=== PATIENT | male | born 1960 | race Caucasian/White ===

== ENCOUNTER 2017-07-08 16:59 | Emergency (ER) | payer BC ==
[2017-07-08 17:14] VITALS: BP 141/84
[2017-07-08] MEDS ORDERED: Fluorescein Sod TOPICAL 0.6* 0.6 MG TEST OPHTHALMIC ONE (17:21)
[2017-07-08] MEDS ORDERED: Tetracaine 0.5% OPTH.SOL 4 ML* 1 DROP BTL BOTH EYES ONE (17:21)
--- NOTE | 2017-07-08 17:23 | UC ---
Eye Complaint HPI - HPI Summary HPI Summary: Pt presents with injury to left eye. He tells me that he went out for a about 1 hour [employer] and was ducking under a tree branch. The branch came down and swiped him across the left eye. Had immediate pain and tearing. He went home and tried to let it rest for an hour or so - did improve some, but he has had an abrasion to this eye before and thinks he remembered having antibiotic coverage. His vision is decreased in this eye, but due to tearing. He does not wear contacts. - History of Current Complaint Chief Complaint: UCEye Stated Complaint: EYE INJURY Time Seen by Provider: 07/08/17 17:16 Hx Obtained From: Patient Onset/Duration: Sudden Onset Severity Initially: Moderate Severity Currently: Mild Pain Intensity: 3 Pain Scale Used: 0-10 Numeric Location of Injury: Sclera Character: Dull Aggravating Factor(s): Blinking Alleviating Factor(s): Darkness, Eye Drops - Allergies/Home Medications Allergies/Adverse Reactions: Allergies Allergy/AdvReac Type Severity Reaction Status Date / Time No Known Allergies Allergy Verified 07/08/17 17:14 PMH/Surg Hx/FS Hx/Imm Hx Previously Healthy: Yes - Surgical History Surgical History: None - Family History Known Family History: Positive: Cardiac Disease - Social History Occupation: Employed Full-time Lives: With Family Alcohol Use: Daily Alcohol Amount: 1 beer/day Substance Use Type: None Smoking Status (MU): Never Smoked Tobacco Review of Systems Constitutional: Negative Skin: Negative Eyes: Drainage - Left eye, Eye Redness - Left eye Respiratory: Negative Cardiovascular: Negative Gastrointestinal: Negative Neurovascular: Negative Neurological: Negative Psychological: Negative All Other Systems Reviewed And Are Negative: Yes Physical Exam Triage Information Reviewed: Yes Appearance: Well-Appearing, No Pain Distress, Well-Nourished Vital Signs: Initial Vital Signs Temp 98.4 F 07/08/17 17:09 Pulse 88 07/08/17 17:09 Resp 14 07/08/17 17:09 BP 141/84 07/08/17 17:09 Pulse Ox 98 07/08/17 17:09 Vital Signs Reviewed: Yes Eyes: Positive: Other: - Left eye with sclera injection and clear tearing. No FBs. EOMI. PERRLA. Dye exam: reveals 2mm abrasion just lateral to the pupil. No edgar sign. Vision OD 20/20, OS 20/40, OU 20/30. Neck: Positive: Supple, Nontender, No Lymphadenopathy Respiratory: Positive: Lungs clear, Normal breath sounds, No respiratory distress, No accessory muscle use Cardiovascular: Positive: RRR, No Murmur, Pulses Normal Neurological: Positive: Alert Psychological: Positive: Age Appropriate Behavior Skin: Negative: rashes, significant lesion(s) Eye Complaint Course/Dx - Course Course Of Treatment: Left eye corneal abrasion. Will cover with ofloxacin and have him f/u with his eye doctor within the week. - Differential Dx/Diagnosis Provider Diagnoses: Left eye abrasion Discharge - Sign-Out/Discharge Documenting (check all that apply): Discharge - Discharge Plan Condition: Stable Disposition: HOME Prescriptions: Ofloxacin 0.3%(Ophth)(Nf) [Ocuflox OPTH 0.3%(NF)] 1 drop LEFT EYE QID #1 btl Patient Education Materials: Corneal Abrasion (ED) Referrals: Jesus Springer MD [Primary Care Provider] - Additional Instructions: If you develop a fever, shortness of breath, chest pain, new or worsening symptoms - please call your PCP or go to the ED. Your blood pressure was high at todays visit. Please see your primary provider within 4 weeks for recheck and re-evaluation. 1) Please schedule a follow up appointment with your eye doctor within 1 week for recheck - Billing Disposition and Condition Condition: STABLE Disposition: HOME
== END 2017-07-08 17:55 | disposition home or self-care (01) ==
LOC: UCEAST 16:59
DX: S05.02XA Injury of conjunctiva and corneal abrasion without foreign body, left eye, initial encounter (principal); W22.8XXA Striking against or struck by other objects, initial encounter; Y93.9 Activity, unspecified; Y92.9 Unspecified place or not applicable
CPT/HCPCS: 99202; A9270-GY; G0463